=== PATIENT | female | born 1995 | race Hispanic/Latino ===

== ENCOUNTER 2017-11-22 18:49 | Emergency (ER) | payer BC ==
[~2017-11-22] VITALS: Ht 160 cm; Wt 84.0 kg
[~2017-11-22 18:49] MED LIST: NORCO1 TA2 PO; ONDANSETRON4 MG PO; PREVPAC PO; ULTRAM50 MG PO
[2017-11-22] MEDS ORDERED: PRENATAL1 TA1 PO (20:45)
[2017-11-22] MEDS ORDERED: RANITIDINE150 MG PO (20:46)
[2017-11-22 21:19] LABS: HEMATOCRIT 34.3 % (37.0-47.0); HEMOGLOBIN 11.7 g/dl (12.0-16.0); IMMATURE GRANULOCYTES 0.4 % (0.0-1.0); MEAN CELL VOLUME 82.9 fL CALC (80.0-100.0); MEAN CORPUSCULAR HGB 28.3 pG CALC (26.0-32.0); MEAN CORPUSCULAR HGB CONC 34.1 g/L CALC (32.0-36.0); NEUT# 7.93 thou/uL (2.00-7.15); RED BLOOD COUNT 4.14 mill/uL (4.20-5.60)
[2017-11-22 21:23] LABS: URINE BILIRUBIN - DIPSTICK NEGATIVE (NEGATIVE); URINE BLOOD DIPSTICK MODERATE (NEGATIVE); URINE COLOR YELLOW; URINE GLUCOSE - DIPSTICK NEGATIVE (NEGATIVE); URINE KETONE NEGATIVE (NEGATIVE); URINE LEUK ESTERASE TRACE (NEGATIVE); URINE NITRITE - DIPSTICK NEGATIVE (Negative); URINE PROTEIN - DIPSTICK TRACE mg/dL (NEG-TRACE); URINE UROBILINOGEN - DIPSTICK 0.2 E.U./dL (0.2)
[2017-11-22 21:30] LABS: URINE CLARITY CLEAR
[2017-11-22 21:32] LABS: ALBUMIN 4.3 g/dL (3.2-5.0); ALKALINE PHOSPHATASE 74 u/l (38-126); ANION GAP 17 (6-22 (CALC)); BILIRUBIN, TOTAL 0.3 mg/dL (0.0-1.4); BUN 5 mg/dL (7-17); BUN/CREATININE RATIO 14 (12-20 (CALC)); CARBON DIOXIDE 21 mmol/l (22-30); CHLORIDE 103 mmol/l (95-108); CREATININE 0.4 mg/dL (0.5-1.0); GFR > 60 ML/MIN (>=60 (CALC)); GFR FOR AFR.AMER. > 60 ML/MIN (>=60 (CALC)); POTASSIUM 3.9 mmol/l (3.5-5.1); SGOT/AST 32 u/l (14-36); SGPT/ALT 61 u/l (9-52); SODIUM 138 mmol/l (137-146); TOTAL PROTEIN 7.5 g/dL (6.3-8.2)
[2017-11-22 21:37] LABS: URINE SQUAMOUS EPITHELIAL CELL FEW EPI/hpf (0-FEW)
[2017-11-22] MEDS ORDERED: MACRODANTIN100 MG PO (21:43)
[2017-11-22] MEDS ORDERED: ZOFRAN ODT4 MG PO (21:43)
[2017-11-22 21:48] VITALS: BP 137/92
[2017-11-22 22:16] LABS: BETA-HCG, QUANT(RESULT NUMBER) 44478 mIU/mL
== END 2017-11-22 21:45 | disposition home or self-care (01) | DRG 781 ==
LOC: ED 18:49
PROVIDERS: Emergency Medicine
DX: O23.41 Unspecified infection of urinary tract in pregnancy, first trimester (principal); Z3A.12 12 weeks gestation of pregnancy

== ENCOUNTER 2022-11-26 16:00 | Emergency (ER) | payer SELFPAY ==
[~2022-11-26] VITALS: Ht 160 cm; Wt 98.9 kg
[~2022-11-26 16:00] MED LIST changes: +MACRODANTIN100 MG PO; +PRENATAL1 TA1 PO; +RANITIDINE150 MG PO; +ZOFRAN ODT4 MG PO
[2022-11-26 16:56] VITALS: BP 126/81
[2022-11-26 17:45] VITALS: BP 121/74
[2022-11-26 17:57] LABS: BASO% 0.2 % (0-3); EOS% 0.1 % (0-8); IMMATURE GRANULOCYTES 0.1 % (0.0-5.0); LYMPH% 12.5 % (15-41); MEAN CELL VOLUME 85.6 fL CALC (80.0-100.0); MEAN CORPUSCULAR HGB 28.9 pG CALC (26.0-32.0); MEAN CORPUSCULAR HGB CONC 33.7 g/dL CAL (32.0-36.0); MONO% 2.7 % (2-13); NEUT# 11.77 thou/uL (2.00-7.15); NEUT% 84.4 % (42-76); RED BLOOD COUNT 4.78 mill/uL (4.20-5.60); RED CELL DISTRI WIDTH 12.3 % (11.5-15.5)
[2022-11-26 17:59] LABS: HEMATOCRIT 40.9 % (37.0-47.0); HEMOGLOBIN 13.8 g/dl (12.0-16.0)
[2022-11-26 18:00] LABS: URINE BILIRUBIN - DIPSTICK NEGATIVE (NEGATIVE); URINE BLOOD DIPSTICK TRACE-INTACT (NEGATIVE); URINE COLOR YELLOW; URINE GLUCOSE - DIPSTICK NEGATIVE (NEGATIVE); URINE KETONE 40 mg/dL (NEGATIVE); URINE LEUK ESTERASE TRACE (NEGATIVE); URINE PH 6.5 (4.5-8.0); URINE PROTEIN - DIPSTICK NEGATIVE (NEG-TRACE); URINE SPECIFIC GRAVITY >=1.030; URINE UROBILINOGEN - DIPSTICK 0.2 E.U./dL (0.2)
[2022-11-26 18:04] LABS: URINE NITRITE - DIPSTICK NEGATIVE (Negative)
[2022-11-26 18:10] LABS: ALKALINE PHOSPHATASE 79 u/l (38-126); ANION GAP 17 (6-22 (CALC)); BUN 10 mg/dL (7-17); BUN/CREATININE RATIO 21 (12-20 (CALC)); CARBON DIOXIDE 21 mmol/l (22-30); CHLORIDE 101 mmol/l (95-108); CREATININE 0.5 mg/dL (0.5-1.0); GFR FOR AFR.AMER. > 60 ML/MIN (>=60 (CALC)); GFR OTHER RACES > 60 ML/MIN (>=60 (CALC)); LIPASE 60 u/l (23-300); POTASSIUM 4.3 mmol/l (3.5-5.1); SGOT/AST 43 u/l (14-36); SODIUM 134 mmol/l (137-146)
[2022-11-26 18:12] LABS: ALBUMIN 5.3 g/dL (3.2-5.0); BILIRUBIN, TOTAL 0.7 mg/dL (0.02-1.3); TOTAL PROTEIN 9.6 g/dL (6.3-8.2)
[2022-11-26 21:44] VITALS: BP 121/74
== END 2022-11-26 21:56 | disposition home or self-care (01) | DRG 761 ==
LOC: ED 16:00
PROVIDERS: Family Medicine
DX: N83.209 Unspecified ovarian cyst, unspecified side (principal); Z20.822 Contact with and (suspected) exposure to COVID-19
CPT/HCPCS: Q9967

== ENCOUNTER 2024-06-16 00:34 | Observation (INO) | payer OTHER ==
[~2024-06-16] VITALS: Ht 160 cm; Wt 95.0 kg
[2024-06-16] VITALS (14 sets, daily range): BP systolic 92–135; BP diastolic 43–89
[2024-06-16] MEDS ORDERED: SODIUM CHLORIDE 0.9% 1,000 ML IV ONE (01:10)
[2024-06-16] MEDS ORDERED: MORPHINE SULFATE 4 MG/ML VIAL IV ONE (01:10)
[2024-06-16] MEDS ORDERED: DiphenhydrAMINE HCL 50 MG/ML SDV IV ONE (01:10)
[2024-06-16] MEDS ORDERED: ONDANSETRON HCl 4 MG/2 ML SDV IV ONE (01:10)
[2024-06-16] MEDS ORDERED: METOCLOPRAMIDE HCL 10 MG/2 ML SDV IV ONE (01:10)
[2024-06-16 01:35] LABS: BASO% 0.3 % (0-3); EOS% 0.5 % (0-8); HEMATOCRIT 38.5 % (37.0-47.0); HEMOGLOBIN 13.2 g/dl (12.0-16.0); IMMATURE GRANULOCYTES 0.2 % (0.0-5.0); LYMPH% 17.1 % (15-41); MEAN CELL VOLUME 84.2 fL CALC (80.0-100.0); MEAN CORPUSCULAR HGB 28.9 pG CALC (26.0-32.0); MEAN CORPUSCULAR HGB CONC 34.3 g/dL CAL (32.0-36.0); MONO% 4.2 % (2-13); NEUT# 11.34 thou/uL (2.00-7.15); NEUT% 77.7 % (42-76); RED BLOOD COUNT 4.57 mill/uL (4.20-5.60); RED CELL DISTRI WIDTH 12.2 % (11.5-15.5)
[2024-06-16 01:54] LABS: ALBUMIN 4.9 g/dL (3.2-5.0); CREATININE 0.6 mg/dL (0.5-1.0); POTASSIUM 3.6 mmol/l (3.5-5.1); TOTAL PROTEIN 8.7 g/dL (6.3-8.2)
[2024-06-16 01:55] LABS: BILIRUBIN, TOTAL 0.4 mg/dL (0.02-1.3)
[2024-06-16 02:26] LABS: URINE BILIRUBIN - DIPSTICK Negative (NEGATIVE); URINE BLOOD DIPSTICK Trace-lysed (NEGATIVE); URINE GLUCOSE - DIPSTICK Negative (NEGATIVE); URINE KETONE Negative (NEGATIVE); URINE LEUK ESTERASE Negative (NEGATIVE); URINE NITRITE - DIPSTICK Negative (Negative); URINE PH 5.5 (4.5-8.0); URINE PROTEIN - DIPSTICK Negative (NEG-TRACE); URINE SPECIFIC GRAVITY >=1.030; URINE UROBILINOGEN - DIPSTICK 0.2 E.U./dL (0.2)
[2024-06-16 02:30] LABS: URINE COLOR Yellow
[2024-06-16] MEDS ORDERED: PIPERACILLIN Sodium-Tazobactam 3.375 GM in SODIUM CHLORIDE 0.9% 100 ML IV ONE ×2 (02:55→09:25)
[2024-06-16] MEDS ORDERED: FAMOTIDINE 10MG/ML 2ML SDV IV ONE (11:48)
[2024-06-16] MEDS ORDERED: LACTATED RINGER'S 1,000 ML IV ONE ×2 (11:49→14:59)
[2024-06-16] MEDS ORDERED: LIDOcaine HCl 1% (Local Anesth.) 20 ML VIAL ONE (12:36)
[2024-06-16] MEDS ORDERED: Iopamidol 300 (Isovue) 61% 100ML SDV IV ONE (13:32)
[2024-06-16] MEDS ORDERED: GLUCAGON HCL (Rdna) 1 MG VIAL ONE (13:32)
[2024-06-16] MEDS ORDERED: HYDROmorphone HCL 2 MG/AMP IV PRN (14:25)
[2024-06-16] MEDS ORDERED: oxyCODONE 5MG/ ACETAMINOPHEN 325MG TAB PO PRN (14:25)
[2024-06-16] MEDS ORDERED: SIMETHICONE 20 MG/0.3 ML PO PRN (14:25)
[2024-06-16] MEDS ORDERED: ONDANSETRON HCl 4 MG/2 ML SDV IV PRN (14:25)
[2024-06-16] MEDS ORDERED: DEXTROSE 5% w/NACL 0.45 1,000 ML IV PRN (14:25)
[2024-06-16] MEDS ORDERED: SODIUM CHLORIDE 1,000 ML BTL IR ONE (14:43)
[2024-06-16] MEDS ORDERED: STERILE WATER FOR IRRIGATION 1,000 ML BTL IR ONE (14:43)
[2024-06-16] MEDS ORDERED: SODIUM CHLORIDE 0.9% 2,000 ML IV ONE (14:43)
[2024-06-16] MEDS ORDERED: LACTATED RINGER'S 1,000 ML BAG IV ONE (14:46)
[2024-06-16] MEDS ORDERED: PROPOFOL 200 MG/20 ML VIAL IV ONE (14:46)
[2024-06-16] MEDS ORDERED: LIDOCAINE HCL 2% 2ML SDV IV ONE (14:46)
[2024-06-16] MEDS ORDERED: SUGAMMADEX SODIUM 200 MG/2 ML SDV IV ONE (14:46)
[2024-06-16] MEDS ORDERED: SUCCINYLCHOLINE CHLORIDE 20 MG/ML 10ML VIAL IV ONE (14:46)
[2024-06-16] MEDS ORDERED: ROCURONIUM BROMIDE 10 MG/ML 5ML VIAL IV ONE (14:46)
[2024-06-16] MEDS ORDERED: ALBUTEROL SULFATE 2.5 MG VIAL ONE (16:54)
[2024-06-16] MEDS ORDERED: PIPERACILLIN Sodium-Tazobactam 3.375 GM in SODIUM CHLORIDE 0.9% 100 ML IV SCH (18:00)
[2024-06-16] MEDS ORDERED: KETOROLAC TROMETHAMINE 15 MG/ML SDV IV SCH (18:00)
[2024-06-17 02:28] VITALS: BP 114/61
[2024-06-17 03:21] VITALS: BP 111/47
[2024-06-17 04:34] VITALS: BP 111/47
[2024-06-17 05:32] LABS: ALBUMIN 3.8 g/dL (3.2-5.0); BILIRUBIN, TOTAL 0.7 mg/dL (0.02-1.3); CREATININE 0.6 mg/dL (0.5-1.0); POTASSIUM 4.1 mmol/l (3.5-5.1); TOTAL PROTEIN 6.7 g/dL (6.3-8.2)
[2024-06-17 06:51] VITALS: BP 127/63
[2024-06-17] MEDS ORDERED: PERCOCET 5/325M1 TAB PO (14:02)
== END 2024-06-17 14:28 | disposition home or self-care (01) ==
LOC: ED 00:34 → ED-I 09:00 → ED 09:21 → ORM 09:22 → MS2 17:29
PROVIDERS: Emergency Medicine; ADMIT Surgery; ATTEND Surgery
DX: K80.12 Calculus of gallbladder with acute and chronic cholecystitis without obstruction (principal); Z20.822 Contact with and (suspected) exposure to COVID-19
CPT/HCPCS: J1610; Q9966; Q9967